=== PATIENT | female | born 1995 | race Caucasian/White ===

== ENCOUNTER 2024-01-06 08:13 | Observation (INO) ==
--- NOTE | 2024-01-06 08:29 | ED.PDOC ---
General ED Provider: Dr. AMAN PEÑA MD Chief Complaint: Diabetes Stated Complaint: Patient history of type 1 diabetes complains of elevated blood sugar Accu-Chek reading high over the past 48 hours associated persistent nausea and emesis x 1 with pain in her shoulders. Denies difficulty breathing difficulty swallowing denies diarrhea. Time Seen by Provider: 01/06/24 08:24 Mode of Arrival: Walk-In Information Source: Patient Exam Limitations: Clinical condition Nursing and Triage Documentation Reviewed and Agree: Yes What is Opioid Naive?: *Opioid Naive implies the patient is not already taking opioids or not chronically receiving opioids on a daily basis. *PRN dosing is not "usually" associated with tolerance. *Patients are at higher risk of over-sedation and aspiration. What is Opioid Tolerant?: *Opioid Tolerance implies less than the expected response to an opioid. *Acquired tolerance is defined by the patient taking 60mg of oral morphine daily (or equianalgesic dose of another opioid) for 1 week or more. *Often associated with chronic pain. *May take more than usual dose to achieve desired pain control. Review of Systems Review Of Systems Constitutional: Reports Weakness Eyes: Reports No symptoms Ears, Nose, Mouth, Throat: Reports No symptoms Respiratory: Reports No symptoms Cardiac: Reports No symptoms GI: Reports Nausea and Poor appetite : Reports No symptoms Musculoskeletal: Reports Joint pain (Pain in both shoulders) Skin: Reports No symptoms Neurological: Reports No symptoms Endocrine: Reports No symptoms Hematologic/Lymphatic: Reports No symptoms All Other Systems: Reviewed and Negative Physical Exam Physical Exam Appearance: Reports Well-appearing Ill-appearing: None Pain Distress: None Eyes: Reports PARUL, EOMI and Conjunctiva clear ENT: Reports Ears normal and Nose normal Neck: Supple Respiratory: Reports Airway patent, Breath sounds clear and Breath sounds equal Cardiovascular: Reports Pulses normal and Tachycardia GI/: Reports Soft, Nontender and Bowel sounds normal Musculoskeletal: Reports Normal strength, ROM intact and No edema Skin: Reports Warm Neurological: Reports Sensation intact Psychiatric: Reports Affect appropriate Re-Evaluation Re-Evaluation Time of Re-Evaluation: 09:40 Pain Level: Patient states her pain has improved Physician Notification Case Discussed Physician Notified: discussed with hospitalist Julieta Yanez Time of Notification: 13:20 Comments: After review of her laboratory data will admit to observation Critical Care Note Critical Care Note Total Critical Care Time (mins): 30 Course Course 01/06/24 08:52 01/06/24 12:15 Orders, Labs, Meds: Lab Review 01/06/24 01/06/24 01/06/24 08:35 08:52 12:15 WBC 11.01 H RBC 4.71 Hgb 14.5 Hct 44.7 MCV 94.9 MCH 30.8 MCHC 32.4 RDW Coeff of Josiane 12.0 Plt Count 275 Immature Gran % (Auto) 0.2 Neut % (Auto) 68.1 Lymph % (Auto) 21.5 Faulk % (Auto) 5.3 Eos % (Auto) 4.5 Baso % (Auto) 0.4 Neut # (Auto) 7.5 H Lymph # (Auto) 2.4 Faulk # (Auto) 0.6 Eos # (Auto) 0.5 Baso # (Auto) 0.0 Immature Gran # (Auto) 0.0 Puncture Site Rbrach Base Excess -18.4 L O2 Saturation 96.0 ABG pH 7.23 L* ABG pCO2 22.0 L ABG pO2 97.0 ABG HCO3 9.2 L ABG Total CO2 9.9 L Hemoglobin 1.1 Oxyhemoglobin 95.6 Carboxyhemoglobin 2.8 H Total Hemoglobin 13.7 FiO2 % 21.0 Sodium 134.4 L 136.5 Potassium 4.04 4.26 Chloride 101.8 110.4 H Carbon Dioxide 11.6 L 12.8 L Anion Gap 25.04 17.56 BUN 20.1 H 18.6 H Creatinine 0.93 0.80 Estimated GFR (MDRD) 71.00 85.00 BUN/Creatinine Ratio 21.61 23.25 Glucose 387.7 H 135.4 H D Calcium 9.51 8.14 L Phosphorus 4.10 Magnesium 2.26 Total Bilirubin 2.97 H AST 31.0 ALT 30.0 Alkaline Phosphatase 111.4 Troponin I < 0.012 Total Protein 8.04 Albumin 4.85 Globulin 3.19 Albumin/Globulin Ratio 1.52 Urine Color Yellow Urine Clarity Clear Urine pH 5.5 Ur Specific [place] 1.025 Urine Protein Negative Urine Glucose (UA) 2+ H Urine Ketones 3+ H Urine Blood Trace-intact H Urine Nitrite Negative Urine Bilirubin Negative Urine Urobilinogen 0.2 Ur Leukocyte Esterase Negative Urine Microscopic RBC 2-5 Ur Squamous Epith Cells Not present Urine Test Negative Acetone, Qual None Orders Category Date Time Status ABG DRAW REQUEST Stat CARDIO 05/18/24 08:29 Completed EKG-(ED ONLY) Stat CARDIO 01/06/24 08:32 Completed ACTIVITY .Up With Assistance CARE 01/06/24 13:19 Active BLOOD GLUCOSE MONITORING (MED/SURG) Q1HR CARE 01/06/24 13:19 Active BLOOD GLUCOSE MONITORING (MED/SURG) Q1HR CARE 01/06/24 13:21 Active INTAKE & OUTPUT Q8HR CARE 01/06/24 13:19 Active VITAL SIGNS Q4HR CARE 01/06/24 13:19 Active NOTHING BY MOUTH DIETARY 01/06/24 Lunch Ordered Radiographer [ED PERSONAL [employer]ANCIAL PLANNER APPLIED] .ONCE EMERGENCY 01/06/24 08:32 Active ABG COOX Stat LAB 01/06/24 08:35 Completed ACETONE, QUALITATIVE Stat LAB 01/06/24 08:52 Completed BMP [BASIC METABOLIC PANEL] Stat LAB 01/06/24 12:15 Completed CBC W/ AUTO DIFF DAILY@0600 LAB 01/07/24 06:00 Ordered CBC W/ AUTO DIFF DAILY@0600 LAB 01/08/24 06:00 Ordered CBC W/ AUTO DIFF Stat LAB 01/06/24 08:52 Completed CMP [COMPREHENSIVE METABOLIC PANEL] Stat LAB 01/06/24 08:52 Completed COMPREHENSIVE METABOLIC PANEL DAILY@0600 LAB 01/07/24 06:00 Ordered COMPREHENSIVE METABOLIC PANEL DAILY@0600 LAB 01/08/24 06:00 Ordered MAGNESIUM Stat LAB 01/06/24 08:52 Completed PHOSPHORUS Stat LAB 01/06/24 08:35 Completed TEST URINE [URINE ] Stat LAB 01/06/24 08:52 Completed TROPONIN I Stat LAB 01/06/24 08:52 Completed URINALYSIS C & S IF INDICATED Stat LAB 01/06/24 08:52 Completed Acetaminophen [Tylenol] Meds 01/06/24 13:19 Active 650 mg PO Q4H PRN Insulin Regular in 0.9 % NaCl [Myxredlin 100 Unit/100 Meds 01/06/24 13:30 Active ml Bag] 100 unit in 100 ml IV TITRATION Insulin Regular, Human [Humulin R] Meds 01/06/24 09:40 Discontinued 4 unit IVP ONCE STA Ketorolac Tromethamine [Toradol] Meds 01/06/24 09:02 Discontinued 30 mg IVP ONCE STA Morphine Sulfate [Morphine 2 mg/ml Syringe] Meds 01/06/24 10:44 Discontinued 2 mg IVP ONCE ONE Ondansetron HCl/Pf [Zofran 4 mg/2 ml] [facility] 01/06/24 08:29 Discontinued 4 mg IVP ONCE STA Ondansetron HCl/Pf [Zofran 4 mg/2 ml] [facility] 01/06/24 12:52 Discontinued 4 mg IVP ONCE STA Ondansetron HCl/Pf [Zofran 4 mg/2 ml] [facility] 01/06/24 13:19 Active 4 mg IVP Q6H PRN Potassium Chloride/D5-0.45NACL [D5%-1/2Ns-KCl 20 Meq/l [facility] 01/06/24 13:30 Active IV Diana] 1,000 ml IV 250 mls/hr Sodium Chloride 0.9% [Sodium Chloride] 1,000 ml [facility] 01/06/24 08:29 Discontinued IV BOLUS Sodium Chloride 0.9% [Sodium Chloride] 1,000 ml [facility] 01/06/24 09:40 Discontinued IV BOLUS Sodium Chloride 0.9% [Sodium Chloride] 1,000 ml [facility] 01/06/24 12:45 Active IV BOLUS Medications Generic Name Dose Route Start Last Admin Trade Name Freq PRN Reason Stop Dose Admin Acetaminophen 650 mg 01/06/24 13:19 Acetaminophen 325 Mg Tablet PO Q4H PRN Mild Pain Sodium Chloride 1,000 mls @ 1,000 mls/hr 01/06/24 12:45 01/06/24 12:53 Sodium Chloride IV 01/06/24 13:44 1,000 mls/hr BOLUS ONE Administration Potassium Chloride/Dextrose/Sod Cl 1,000 mls @ 250 mls/hr 01/06/24 13:30 D5%-1/2ns-Kcl 20 Meq/L Iv Diana IV .Q4H CHARLY INSULIN REGULAR IN 0.9 % NACL 100 unit in 100 mls @ 7.466 mls/hr 01/06/24 13:30 Myxredlin 100 Unit/100 Ml Bag IV TITRATION CHARLY Protocol 0.1 UNIT/KG/HR Ondansetron HCl 4 mg 01/06/24 13:19 Ondansetron Hcl/Pf 4 Mg/2 Ml Sdv IVP Q6H PRN Nausea / Vomiting Discontinued Medications Generic Name Dose Route Start Last Admin Trade Name Freq PRN Reason Stop Dose Admin Sodium Chloride 1,000 mls @ 1,000 mls/hr 01/06/24 08:29 01/06/24 10:42 Sodium Chloride IV 01/06/24 09:28 Infused BOLUS ONE Infusion Sodium Chloride 1,000 mls @ 1,000 mls/hr 01/06/24 09:40 01/06/24 11:32 Sodium Chloride IV 01/06/24 10:39 Infused BOLUS ONE Infusion Insulin Human Regular 4 unit 01/06/24 09:40 01/06/24 10:20 Insulin Regular, Human 100 Unit/Ml (10ml) Vial IVP 01/06/24 09:41 4 unit ONCE STA Administration Ketorolac Tromethamine 30 mg 01/06/24 09:02 01/06/24 09:06 Ketorolac Tromethamine 30 Mg/Ml Vial IVP 01/06/24 09:03 30 mg ONCE STA Administration Morphine Sulfate 2 mg 01/06/24 10:44 01/06/24 10:49 Morphine Sulfate 2 Mg/Ml Syringe IVP 01/06/24 10:45 2 mg ONCE ONE Administration Ondansetron HCl 4 mg 01/06/24 08:29 01/06/24 08:43 Ondansetron Hcl/Pf 4 Mg/2 Ml Sdv IVP 01/06/24 08:30 4 mg ONCE STA Administration Ondansetron HCl 4 mg 01/06/24 12:52 01/06/24 13:03 Ondansetron Hcl/Pf 4 Mg/2 Ml Sdv IVP 01/06/24 12:53 4 mg ONCE STA Administration Vital Signs: Temp Pulse Resp BP Pulse Ox 01/06/24 08:13 98.3 F 104 H 24 H 126/80 100 Discharge Plan Discharge Patient Disposition: PLACED OBSERVATION Discharge Problem: Diabetic keto-acidosis Qualifiers: Diabetes mellitus type: type 1 Diabetes mellitus complication detail: without coma Qualified Code(s): E10.10 - Type 1 diabetes mellitus with ketoacidosis without coma Prescriptions: No Action insulin lispro [Humalog U-100 Insulin] 100 unit/mL solution 1 sliding scale dose subcut DIRECTED Did you review [place] [employer] for ALL controlled substances?: Not Applicable ED Provider: AMAN PEÑA Condition: Stable Physician Progress Note: Patient with a history of type 1 diabetes complains of elevated glucose over the past 48 hours as infusion pump complains of persistent nausea associated episode emesis and pain in both shoulders denies abdominal pain lethargy fever chills urinary symptoms diarrhea. Patient given a bolus normal saline 1 L/h x 2 Zofran 4 mg IV Toradol 30 mg IV EKG interpretation by myself is specific normal sinus with a rate of 93 there is no ischemic changes there is no ectopy there is no prolongation of ME QT interval. Laboratory data acetone is negative CBC for normal limit except for white blood count of 1000 the BMP is normal limits of for glucose of 387 and a CO2 of 11.6. Acetone is negative, serum blood gas with normal limits therefore pH 7.23 and bicarb 9.2. Patient administered Humulin regular insulin 4 units IV, followed by a 3rd liter normal saline Repeat BMP pCO2 remains calm and glucose 135 Advised the patient to disconnect her insulin pump percutaneous Differential diagnosis: 1)Diabetic ketoacidosis: discussed with hospitalist Julieta Yanez at 1324 for observation []
[2024-01-06] MEDS: SODIUM CHLORIDE 1,000 ML IV ONE ×3 (08:43→12:53)
[2024-01-06] MEDS: ZOFRAN 4 MG/2 ML IVP STA ×2 (08:43→13:03)
[2024-01-06 08:57] LABS: BASOPHILS % (AUTO) 0.4 % (0.0-3.0); EOSINOPHILS # (AUTO) 0.5 K/ul (0.0-0.7); EOSINOPHILS % (AUTO) 4.5 % (0.0-7.0); HEMATOCRIT 44.7 % (37.0-47.0); HEMOGLOBIN 14.5 g/dl (12.0-16.0); IMMATURE GRANULOCYTE % (AUTO) 0.2 % (0.0-5.0); LYMPHOCYTES # (AUTO) 2.4 K/uL (0.60-3.4); LYMPHOCYTES % (AUTO) 21.5 (10.0-50.0); MEAN CORPUSCULAR HEMOGLOBIN 30.8 pg (27.0-31.0); MEAN CORPUSCULAR HGB CONC 32.4 (31.8-35.4); MEAN CORPUSCULAR VOLUME 94.9 fl (81.0-99.0); MONOCYTES # (AUTO) 0.6 K/uL (0.4-2.0); MONOCYTES % (AUTO) 5.3 (0-10); NEUTROPHILS # (AUTO) 7.5 K/ul (2.0-6.9); NEUTROPHILS % (AUTO) 68.1 % (42.2-75.2); PLATELET COUNT 275 10^3/uL (140-440); RED BLOOD COUNT 4.71 10^6/ul (4.20-5.40); WHITE BLOOD COUNT 11.01 K/ul (4.6-10.2)
[2024-01-06 08:59] LABS: BILIRUBIN,URINE Negative (NEGATIVE); CLARITY,URINE Clear (CLEAR); COLOR,URINE Yellow (YELLOW); GLUCOSE, URINE (UA) 2+ (NEGATIVE); KETONES,URINE 3+ (NEGATIVE); LEUKOCYTE ESTERASE ,URINE Negative (NEGATIVE); NITRITE,URINE Negative (NEGATIVE); PH,URINE 5.5 (5-9); PROTEIN,URINE Negative (NEGATIVE); SQUAMOUS EPITHELIAL CELL,UR NOT PRESENT (0-5); URINE PREGNANCY TEST NEGATIVE (NEGATIVE); URINE, BLOOD Trace-intact (NEGATIVE); UROBILINOGEN,URINE 0.2 (0.2)
[2024-01-06 09:01] LABS: ABG O2 HGB 95.6 % (95-100); BEecf -18.4 (-2.0-3.0); COHb 2.8 (0.5-1.5); HCO3 9.2 (21-28); MetHb 1.1 (0-1.5); TCO2 9.9 (19-24); tHb 13.7 g/dl (11.7-17.4)
[2024-01-06 09:03] LABS: ABG PH 7.23 (7.35-7.45)
[2024-01-06] MEDS: TORADOL IVP STA (09:06)
[2024-01-06 09:10] LABS: ALBUMIN 4.85 g/dL (3.5-5.0); ALKALINE PHOSPHATASE 111.4 U/L (38-126); BILIRUBIN,TOTAL 2.97 mg/dL (0.2-1.3); BLOOD UREA NITROGEN 20.1 mg/dL (7-17); CALCIUM 9.51 mg/dL (8.4-10.2); CARBON DIOXIDE 11.6 mmol/L (22-30.0); CHLORIDE 101.8 mmol/L (98-107); CREATININE 0.93 mg/dL (0.60-1.30); GLUCOSE 387.7 mg/dL (74-106); MAGNESIUM 2.26 mg/dL (1.6-2.3); POTASSIUM 4.04 mmol/L (3.5-5.1); SODIUM 134.4 mmol/L (134.5-145); TOTAL PROTEIN 8.04 g/dL (6.3-8.2)
[2024-01-06] MEDS: HUMULIN R (10ML) IVP STA (10:20)
[2024-01-06] MEDS: MORPHINE 2 MG/ML SYRINGE IVP ONE (10:49)
[2024-01-06 12:32] LABS: BLOOD UREA NITROGEN 18.6 mg/dL (7-17); CALCIUM 8.14 mg/dL (8.4-10.2); CARBON DIOXIDE 12.8 mmol/L (22-30.0); CHLORIDE 110.4 mmol/L (98-107); CREATININE 0.8 mg/dL (0.60-1.30); GLUCOSE 135.4 mg/dL (74-106); POTASSIUM 4.26 mmol/L (3.5-5.1); SODIUM 136.5 mmol/L (134.5-145)
[2024-01-06] MEDS ORDERED: ZOFRAN 4 MG/2 ML IVP PRN (13:19)
[2024-01-06] MEDS ORDERED: TYLENOL PO PRN (13:19)
--- NOTE | 2024-01-06 13:27 | PCM ---
Date of Service Date Seen by Provider: 01/06/24 Time Seen by Provider: 14:00 Admit Day/Time Admission Date: 01/06/24 Admission Time: 13:38 Reason for Admission Chief Complaint: DIABETIC KETOACIDOSIS Hospital Provider Hospital Provider: Julieta Yanez PA-C, [facility] History of Present Illness History of Present Illness: Patient is a 28 year old female with pmhx of hypothyroidism, DMT1 on insulin pump who comes in for elevated blood sugars and vomiting. She has concerns of being in DKA. [place]. States her pump was ripped off of her by her child yesterday. She was able to replace it but then this morning her glucose readings were high and she started having nausea, body aches, and sob. In the ER she was found to have ph 7.23, bicarb of 11, glucose >350, anion gap of 25 and 3+ ketones in urine. She was given 2.5L of fluid and 4U IVP of insulin and bicarb improved only to 12. She will be admitted to med surg. Patient states she hasn't been in DKA in about 13 years. Usually does well with her insulin pump. She's feeling better now but complains of dry mouth. Case Discussed With Case Discussed With: Patient's case was discussed with the ER Physicians, Dr. Saucedo. [facility] Medical History (Updated 01/06/24 @ 14:50 by URBANO SORIANO, CONY) delivery delivered X2 O82 - Encounter for delivery without indication (ICD-10) Vitamin D deficiency E55.9 - Vitamin D deficiency, unspecified (ICD-10) Hypothyroidism E03.9 - Hypothyroidism, unspecified (ICD-10) Surgical History (Updated 01/06/24 @ 14:50 by URBANO SORIANO, RN) History of hip surgery left plates and screws Z98.890 - Other specified postprocedural states (ICD-10) Social History (Updated 01/06/24 @ 14:50 by URBANO SORIANO, RN) Smoking and tobacco status: Never smoker Alcohol intake: never Substance use type: does not use Allergies Allergies Allergy/AdvReac Type Severity Reaction Status Date / Time No Known Allergies Allergy Unverified 01/06/24 08:27 Current Medications Home Medications insulin lispro 100 unit/mL subcutaneous solution (Humalog U-100 Insulin) 1 sliding scale dose subcut DIRECTED 01/06/24 [History Confirmed 01/06/24 Last Taken Unknown] Home Acetaminophen (Acetaminophen 325 Mg Tablet) 650 mg PO Q4H PRN PRN Reason: Mild Pain Potassium Chloride/Dextrose/Sod Cl (D5%-1/2ns-Kcl 20 Meq/L Iv Diana) 1,000 mls @ 250 mls/hr IV .Q4H CHARLY INSULIN REGULAR IN 0.9 % NACL (Myxredlin 100 Unit/100 Ml Bag) 100 unit in 100 mls @ 7.466 mls/hr IV TITRATION CHARLY; Protocol Dextrose/Sodium Chloride (Dextrose 5%-1/2ns Iv Solution) 1,000 mls @ 250 mls/hr IV .Q4H CHARLY Last Admin: 01/06/24 15:01 Dose: 250 mls/hr Morphine Sulfate (Morphine Sulfate 2 Mg/Ml Syringe) 1 mg IVP Q6H PRN PRN Reason: MODERATE PAIN Ondansetron HCl (Ondansetron Hcl/Pf 4 Mg/2 Ml Sdv) 4 mg IVP Q6H PRN PRN Reason: Nausea / Vomiting Discontinued Medications Sodium Chloride (Sodium Chloride) 1,000 mls @ 1,000 mls/hr IV BOLUS ONE Stop: 01/06/24 09:28 Last Infusion: 01/06/24 10:42 Dose: Infused Sodium Chloride (Sodium Chloride) 1,000 mls @ 1,000 mls/hr IV BOLUS ONE Stop: 01/06/24 10:39 Last Infusion: 01/06/24 11:32 Dose: Infused Sodium Chloride (Sodium Chloride) 1,000 mls @ 1,000 mls/hr IV BOLUS ONE Stop: 01/06/24 13:44 Last Infusion: 01/06/24 14:45 Dose: Infused Insulin Human Regular (Insulin Regular, Human 100 Unit/Ml (10ml) Vial) 4 unit IVP ONCE STA Stop: 01/06/24 09:41 Last Admin: 01/06/24 10:20 Dose: 4 unit Ketorolac Tromethamine (Ketorolac Tromethamine 30 Mg/Ml Vial) 30 mg IVP ONCE STA Stop: 01/06/24 09:03 Last Admin: 01/06/24 09:06 Dose: 30 mg Morphine Sulfate (Morphine Sulfate 2 Mg/Ml Syringe) 2 mg IVP ONCE ONE Stop: 01/06/24 10:45 Last Admin: 01/06/24 10:49 Dose: 2 mg Ondansetron HCl (Ondansetron Hcl/Pf 4 Mg/2 Ml Sdv) 4 mg IVP ONCE STA Stop: 01/06/24 08:30 Last Admin: 01/06/24 08:43 Dose: 4 mg Ondansetron HCl (Ondansetron Hcl/Pf 4 Mg/2 Ml Sdv) 4 mg IVP ONCE STA Stop: 01/06/24 12:53 Last Admin: 01/06/24 13:03 Dose: 4 mg Opioid Naive vs. Tolerant Does Patient Take Opioids?: No Is Patient Opioid Naive?: Yes What is Opioid Naive?: *Opioid Naive implies the patient is not already taking opioids or not chronically receiving opioids on a daily basis. *PRN dosing is not "usually" associated with tolerance. *Patients are at higher risk of over-sedation and aspiration. Is Patient Opioid Tolerant?: No What is Opioid Tolerant?: *Opioid Tolerance implies less than the expected response to an opioid. *Acquired tolerance is defined by the patient taking 60mg of oral morphine daily (or equianalgesic dose of another opioid) for 1 week or more. *Often associated with chronic pain. *May take more than usual dose to achieve desired pain control. Review of Systems Constitutional: Reports Fatigue and Loss of appetite Head: Reports Normocephalic and Atraumatic Cardiovascular: Denies Chest pain or Chest Pressure Respiratory: Reports Shortness of air; Denies Cough Gastrointestinal: Reports Nausea and Vomiting; Denies Diarrhea or Abdominal pain Genitourinary: Denies Dysuria or Frequency Endocrine: Reports Excessive thirst Psychiatric: Reports No symptoms Physical examination Most Recent Vital Signs: Most Recent Vital Signs Temperature 98.3 F 01/06/24 08:13 Temperature Source Infrared 01/06/24 08:13 Pulse Rate 104 H 01/06/24 08:13 Respiratory Rate 24 H 01/06/24 08:13 Blood Pressure 126/80 01/06/24 08:13 O2 Sat by Pulse Oximetry 100 01/06/24 08:13 Height 5 ft 4.25 in 01/06/24 08:13 Weight 164 lb 9.6 oz 01/06/24 08:13 Appearance: Positive Well-appearing, Well-nourished, No Apparent Distress and Alert and Oriented x3 Skin: Positive [place], Warm and Good Turgor; Negative Rashes HEENT: Positive Normocephalic and Atraumatic; Negative Oral Mucous Moist Neck: Positive Supple and Midline Trachea Chest/Lungs: Positive Clear to Auscultation Bilaterally; Negative Rales, Rhonci or Wheezes Heart: Positive RRR GI/: Positive Soft, Nontender, Bowel Sounds Normal and No Distention Neurological: Positive Cranial Nerves Intact, Alert, Oriented and Muscle Strength 5/5 in Upper and Lower Extremities Bilaterally Psychiatric: Positive Oriented x4, Appropriate Mood and Appropriate Affect Labs This Visit Labs This Visit: Labs This Visit 01/06/24 01/06/24 01/06/24 08:35 08:52 12:15 WBC 11.01 H RBC 4.71 Hgb 14.5 Hct 44.7 MCV 94.9 MCH 30.8 MCHC 32.4 RDW Coeff of Josiane 12.0 Plt Count 275 Immature Gran % (Auto) 0.2 Neut % (Auto) 68.1 Lymph % (Auto) 21.5 [place] % (Auto) 5.3 Eos % (Auto) 4.5 Baso % (Auto) 0.4 Neut # (Auto) 7.5 H Lymph # (Auto) 2.4 [place] # (Auto) 0.6 Eos # (Auto) 0.5 Baso # (Auto) 0.0 Immature Gran # (Auto) 0.0 Puncture Site Rbrach Base Excess -18.4 L O2 Saturation 96.0 ABG pH 7.23 L* ABG pCO2 22.0 L ABG pO2 97.0 ABG HCO3 9.2 L ABG Total CO2 9.9 L Hemoglobin 1.1 Oxyhemoglobin 95.6 Carboxyhemoglobin 2.8 H Total Hemoglobin 13.7 FiO2 % 21.0 Sodium 134.4 L 136.5 Potassium 4.04 4.26 Chloride 101.8 110.4 H Carbon Dioxide 11.6 L 12.8 L Anion Gap 25.04 17.56 BUN 20.1 H 18.6 H Creatinine 0.93 0.80 Estimated GFR (MDRD) 71.00 85.00 BUN/Creatinine Ratio 21.61 23.25 Glucose 387.7 H 135.4 H D Calcium 9.51 8.14 L Phosphorus 4.10 Magnesium 2.26 Total Bilirubin 2.97 H AST 31.0 ALT 30.0 Alkaline Phosphatase 111.4 Troponin I < 0.012 Total Protein 8.04 Albumin 4.85 Globulin 3.19 Albumin/Globulin Ratio 1.52 Urine Color Yellow Urine Clarity Clear Urine pH 5.5 Ur Specific [place] 1.025 Urine Protein Negative Urine Glucose (UA) 2+ H Urine Ketones 3+ H Urine Blood Trace-intact H Urine Nitrite Negative Urine Bilirubin Negative Urine Urobilinogen 0.2 Ur Leukocyte Esterase Negative Urine Microscopic RBC 2-5 Ur Squamous Epith Cells Not present Urine Test Negative Acetone, Qual None Review Statement Review Statement: I have independently reviewed and interpreted the labs/EKGs/imaging that were ordered by the ER provider. I have reviewed all outside records that are available currently in our EMR including imaging/notes/labs from previous visits. Plan Plan: 1. DKA, moderate - AG initially 25, improved to 17. Glucose <200 right now in ER. Start D51/2+20K at 250 ml/hr, insulin drip, accuchecks q1hr, repeat bmp and venous ph in 4 hours. Stop patient's personal insulin pump for now. UA negative for infection. Likely due to insulin pump malfunction/change yesterday. 2. Hypothyoridism - Cont home meds Update: Patient's glucose 79 upon arrival to the floor. Will hold on insulin drip. Start d51/2NS at 250ml/hr. Once glucose about 200, will change fluids and add insulin drip. Will also get a bmp at that time. DVT Prophylaxis: Ambulation Time Spent: Greater than 80 minutes spent with patient, 50% of the time spent with this patient was devoted to counseling and coordination of care. Advanced [facility] Plannin minutes spent discussing advance care planning. Admit to: Obs Dispo: Likely dc tomorrow Discussed Plan of Care with Dr. Edilson Fernandes. Medications Medication Orders: Medications Ordered Category Date Time Status Acetaminophen [Tylenol] Meds 01/06/24 13:19 Ordered 650 mg PO Q4H PRN Insulin Regular in 0.9 % NaCl [Myxredlin 100 Unit/100 Meds 01/06/24 13:30 Ordered ml Bag] 100 unit in 100 ml IV TITRATION Ondansetron HCl/Pf [Zofran 4 mg/2 ml] Meds 01/06/24 13:19 Ordered 4 mg IVP Q6H PRN Potassium Chloride/D5-0.45NACL [D5%-1/2Ns-KCl 20 Meq/l Meds 01/06/24 13:30 Ordered IV Diana] 1,000 ml IV 250 mls/hr Sodium Chloride 0.9% [Sodium Chloride] 1,000 ml Meds 01/06/24 12:45 Active IV BOLUS
[2024-01-06 14:15] LABS: SARS COV-2 RNA RAPID NAAT NEGATIVE (NEGATIVE)
[2024-01-06 14:59] VITALS: BMI 28.7
[2024-01-06] MEDS: DEXTROSE 5%-1/2NS IV SOLUTION 1,000 ML IV SCH (15:01)
[2024-01-06] MEDS: MORPHINE 2 MG/ML SYRINGE IVP PRN (16:31)
[2024-01-06 16:40] LABS: BLOOD UREA NITROGEN 14.5 mg/dL (7-17); CALCIUM 8.04 mg/dL (8.4-10.2); CARBON DIOXIDE 13.7 mmol/L (22-30.0); CHLORIDE 109.2 mmol/L (98-107); CREATININE 0.62 mg/dL (0.60-1.30); GLUCOSE 127.8 mg/dL (74-106); POTASSIUM 3.82 mmol/L (3.5-5.1); SODIUM 136.3 mmol/L (134.5-145)
[2024-01-06] MEDS: MYXREDLIN 100 UNIT/100 ML BAG 100 UNIT/100 ML PLAST..BAG IV SCH (17:27)
[2024-01-06] MEDS: D5%-1/2NS-KCL 20 MEQ/L IV SOL 1,000 ML IV SCH (17:29)
[2024-01-06] MEDS: PHENERGAN 25 MG/ML VIAL IM ONE (20:25)
[2024-01-06 21:52] LABS: CALCIUM 7.86 mg/dL (8.4-10.2); CARBON DIOXIDE 16.7 mmol/L (22-30.0); CREATININE 0.64 mg/dL (0.60-1.30); GLUCOSE 85.5 mg/dL (74-106); POTASSIUM 3.26 mmol/L (3.5-5.1); SODIUM 136.9 mmol/L (134.5-145)
[2024-01-06 22:10] LABS: VBG HCO3 19.3 (22-26); VBG OXYGEN SATURATION 71.5 (60-80); VBG PH 7.28 (7.30-7.40)
[2024-01-06] MEDS: POTASSIUM CHLORIDE 20 MEQ/100 ML PREMIX 20 MEQ/100 ML BAG IV ONE (22:13)
[2024-01-07 01:17] LABS: BLOOD UREA NITROGEN 8.3 mg/dL (7-17); CALCIUM 7.64 mg/dL (8.4-10.2); CARBON DIOXIDE 10.7 mmol/L (22-30.0); CHLORIDE 111.6 mmol/L (98-107); CREATININE 0.56 mg/dL (0.60-1.30); GLUCOSE 252.2 mg/dL (74-106); POTASSIUM 4.72 mmol/L (3.5-5.1)
[2024-01-07 05:37] LABS: BASOPHILS % (AUTO) 0.3 % (0.0-3.0); EOSINOPHILS # (AUTO) 0.3 K/ul (0.0-0.7); EOSINOPHILS % (AUTO) 5.1 % (0.0-7.0); HEMOGLOBIN 11.3 g/dl (12.0-16.0); IMMATURE GRANULOCYTE % (AUTO) 0.3 % (0.0-5.0); LYMPHOCYTES # (AUTO) 2.3 K/uL (0.60-3.4); LYMPHOCYTES % (AUTO) 34.7 (10.0-50.0); MEAN CORPUSCULAR HEMOGLOBIN 31.5 pg (27.0-31.0); MEAN CORPUSCULAR HGB CONC 33.2 (31.8-35.4); MEAN CORPUSCULAR VOLUME 94.7 fl (81.0-99.0); MONOCYTES # (AUTO) 0.5 K/uL (0.4-2.0); NEUTROPHILS # (AUTO) 3.5 K/ul (2.0-6.9); NEUTROPHILS % (AUTO) 52.6 % (42.2-75.2); PLATELET COUNT 194 10^3/uL (140-440); RDW COEFFICIENT OF VARIATION 12.3 % (11.6-14.8); RED BLOOD COUNT 3.59 10^6/ul (4.20-5.40); WHITE BLOOD COUNT 6.71 K/ul (4.6-10.2)
[2024-01-07 05:50] LABS: ALANINE AMINOTRANSFERASE 13.4 U/L (0-35); ALBUMIN 3.13 g/dL (3.5-5.0); ALKALINE PHOSPHATASE 46.6 U/L (38-126); ASPARTATE AMINO TRANSFERASE 37.4 U/L (14-36); BILIRUBIN,TOTAL 1.99 mg/dL (0.2-1.3); CALCIUM 7.92 mg/dL (8.4-10.2); CARBON DIOXIDE 18.2 mmol/L (22-30.0); CHLORIDE 113.6 mmol/L (98-107); CREATININE 0.66 mg/dL (0.60-1.30); GLUCOSE 144.4 mg/dL (74-106); POTASSIUM 3.71 mmol/L (3.5-5.1); SODIUM 136.8 mmol/L (134.5-145); TOTAL PROTEIN 5.62 g/dL (6.3-8.2)
[2024-01-07 05:54] LABS: VBG HCO3 18.7 (22-26); VBG OXYGEN SATURATION 76.4 (60-80); VBG PH 7.3 (7.30-7.40)
--- NOTE | 2024-01-07 09:53 | PCM.PROG ---
Date/Time Seen Date Seen by Provider: 01/07/24 Time Seen by Provider: 08:30 Provider Provider[facility]IM[facility]ARE [facility] Chief Complaint Chief Complaint: DIABETIC KETOACIDOSIS Subjective Subjective: Patient's DKA resolved as of this morning, around [id number] patient was transitioned off of insulin drip to her pump, she ate some breakfast. She overall doesn't feel well, feels achy and has a headache. She also had some low blood pressure readings this morning. She is requesting ibuprofen. Discussed monitoring patient's glucose and BP this morning with plans to discharge later in the day. However, patient's family with her needs to return to [place] this morning. She prefers to stay overnight again to ensure everything is stable and her dad can come and get her from [place]. Objective Appearance: Positive Well-appearing, Well-nourished, No Apparent Distress and Alert and Oriented x3 Chest/Lungs: Positive Clear to Auscultation Bilaterally; Negative Rales, Rhonci or Wheezes Heart: Positive RRR GI/: Positive Soft, Nontender, Bowel Sounds Normal and No Distention Neurological: Positive Cranial Nerves Intact, Alert and Oriented Vital Signs Vital Signs: Vital Signs: Last 24 Hours 01/06/24 14:43 01/06/24 14:43 01/06/24 15:00 Temperature 98.9 F Temperature Source Oral Pulse Rate 74 Respiratory Rate 16 Blood Pressure Blood Pressure Mean Blood Pressure Left Arm 120/58 Blood Pressure Location Blood Pressure Position Supine O2 Sat by Pulse Oximetry 100 Oxygen Delivery Method Room Air Room Air Room Air Height 5 ft 4 in Weight 167 lb 4.8 oz Telemetry Type Telemetry Monitoring Telemetry Heart Rate EKG MO Interval EKG QRS Interval Telemetry Strip Reading 01/06/24 16:00 01/06/24 17:00 01/06/24 17:52 Temperature Temperature Source Pulse Rate Respiratory Rate Blood Pressure Blood Pressure Mean Blood Pressure Left Arm Blood Pressure Location Blood Pressure Position O2 Sat by Pulse Oximetry Oxygen Delivery Method Room Air Room Air Room Air Height Weight Telemetry Type Telemetry Monitoring Telemetry Heart Rate EKG MO Interval EKG QRS Interval Telemetry Strip Reading 01/06/24 18:00 01/06/24 18:58 01/06/24 19:00 Temperature Temperature Source Pulse Rate 84 Respiratory Rate 19 Blood Pressure 112/52 L Blood Pressure Mean 72 Blood Pressure Left Arm Blood Pressure Location Left Arm Blood Pressure Position Supine O2 Sat by Pulse Oximetry 100 Oxygen Delivery Method Room Air Room Air Height Weight Telemetry Type Remote Telemetry Telemetry Monitoring Continues Telemetry Heart Rate 78 EKG MO Interval 0.16 EKG QRS Interval 0.06 Telemetry Strip Reading SR 01/06/24 19:38 01/06/24 19:39 01/06/24 20:05 Temperature Temperature Source Pulse Rate 92 Respiratory Rate 19 Blood Pressure 98/53 L Blood Pressure Mean Blood Pressure Left Arm Blood Pressure Location Blood Pressure Position O2 Sat by Pulse Oximetry Oxygen Delivery Method Room Air Room Air Height Weight Telemetry Type Telemetry Monitoring Telemetry Heart Rate EKG MO Interval EKG QRS Interval Telemetry Strip Reading 01/06/24 20:38 01/06/24 21:00 01/06/24 21:24 Temperature 97.7 F Temperature Source Temporal Artery Scan Pulse Rate 83 78 Respiratory Rate 19 23 H Blood Pressure 111/53 L Blood Pressure Mean 72 Blood Pressure Left Arm Blood Pressure Location Left Arm Blood Pressure Position Sitting O2 Sat by Pulse Oximetry 98 Oxygen Delivery Method Room Air Room Air Height Weight Telemetry Type Telemetry Monitoring Telemetry Heart Rate EKG MO Interval EKG QRS Interval Telemetry Strip Reading 01/06/24 22:00 01/06/24 23:00 01/07/24 00:00 Temperature Temperature Source Pulse Rate Respiratory Rate Blood Pressure Blood Pressure Mean Blood Pressure Left Arm Blood Pressure Location Blood Pressure Position O2 Sat by Pulse Oximetry Oxygen Delivery Method Room Air Room Air Room Air Height Weight Telemetry Type Telemetry Monitoring Telemetry Heart Rate EKG MO Interval EKG QRS Interval Telemetry Strip Reading 01/07/24 01:00 01/07/24 01:00 01/07/24 01:31 Temperature Temperature Source Pulse Rate 75 Respiratory Rate 18 Blood Pressure 110/59 L Blood Pressure Mean Blood Pressure Left Arm Blood Pressure Location Blood Pressure Position O2 Sat by Pulse Oximetry Oxygen Delivery Method Room Air Height Weight Telemetry Type Remote Telemetry Telemetry Monitoring Continues Telemetry Heart Rate 82 EKG MO Interval 0.17 EKG QRS Interval 0.06 Telemetry Strip Reading SR 01/07/24 02:00 01/07/24 02:00 01/07/24 03:03 Temperature Temperature Source Pulse Rate 64 Respiratory Rate 16 Blood Pressure 96/49 L Blood Pressure Mean 64 Blood Pressure Left Arm Blood Pressure Location Right Arm Blood Pressure Position Supine O2 Sat by Pulse Oximetry Oxygen Delivery Method Room Air Room Air Room Air Height Weight Telemetry Type Telemetry Monitoring Telemetry Heart Rate EKG MO Interval EKG QRS Interval Telemetry Strip Reading 01/07/24 03:10 01/07/24 04:00 01/07/24 05:00 Temperature Temperature Source Pulse Rate 70 Respiratory Rate 16 Blood Pressure 95/55 L Blood Pressure Mean Blood Pressure Left Arm Blood Pressure Location Blood Pressure Position O2 Sat by Pulse Oximetry Oxygen Delivery Method Room Air Room Air Height Weight Telemetry Type Telemetry Monitoring Telemetry Heart Rate EKG MO Interval EKG QRS Interval Telemetry Strip Reading 01/07/24 05:12 01/07/24 05:20 01/07/24 05:24 Temperature 97.8 F Temperature Source Temporal Artery Scan Pulse Rate 56 L 52 L Respiratory Rate 15 16 Blood Pressure 94/48 L 89/52 L Blood Pressure Mean 64 Blood Pressure Left Arm Blood Pressure Location Right Arm Blood Pressure Position Supine O2 Sat by Pulse Oximetry 97 Oxygen Delivery Method Room Air Room Air Height Weight Telemetry Type Telemetry Monitoring Telemetry Heart Rate EKG MO Interval EKG QRS Interval Telemetry Strip Reading 01/07/24 05:44 01/07/24 05:59 01/07/24 07:00 Temperature Temperature Source Pulse Rate 82 58 L Respiratory Rate 22 H 14 Blood Pressure 95/54 L 80/37 L Blood Pressure Mean 67 Blood Pressure Left Arm Blood Pressure Location Right Arm Blood Pressure Position Supine O2 Sat by Pulse Oximetry Oxygen Delivery Method Room Air Room Air Height Weight Telemetry Type Telemetry Monitoring Telemetry Heart Rate EKG MO Interval EKG QRS Interval Telemetry Strip Reading 01/07/24 08:00 01/07/24 08:00 01/07/24 09:00 Temperature Temperature Source Pulse Rate Respiratory Rate Blood Pressure Blood Pressure Mean Blood Pressure Left Arm Blood Pressure Location Blood Pressure Position O2 Sat by Pulse Oximetry Oxygen Delivery Method Room Air Room Air Room Air Height Weight Telemetry Type Telemetry Monitoring Telemetry Heart Rate EKG MO Interval EKG QRS Interval Telemetry Strip Reading Lab Results Lab Results: Lab Results: Last 24 Hours 01/07/24 01/07/24 01/06/24 05:30 01:00 21:30 WBC 6.71 RBC 3.59 L Hgb 11.3 L D Hct 34.0 L D MCV 94.7 MCH 31.5 H MCHC 33.2 RDW Coeff of Josiane 12.3 Plt Count 194 Immature Gran % (Auto) 0.3 Neut % (Auto) 52.6 Lymph % (Auto) 34.7 Stanton % (Auto) 7.0 Eos % (Auto) 5.1 Baso % (Auto) 0.3 Neut # (Auto) 3.5 Lymph # (Auto) 2.3 Stanton # (Auto) 0.5 Eos # (Auto) 0.3 Baso # (Auto) 0.0 Immature Gran # (Auto) 0.0 VBG pH 7.30 7.28 L VBG pCO2 38 L 41 VBG pO2 46 H 43 H VBG HCO3 18.7 L 19.3 L VBG O2 Saturation 76.4 71.5 Sodium 136.8 134.0 L 136.9 Potassium 3.71 4.72 3.26 L Chloride 113.6 H 111.6 H 113.0 H Carbon Dioxide 18.2 L D 10.7 L 16.7 L Anion Gap 8.71 16.42 10.46 BUN 8.0 8.3 10.0 Creatinine 0.66 0.56 L 0.64 Estimated GFR (MDRD) 106.00 128.00 110.00 BUN/Creatinine Ratio 12.12 14.82 15.62 Glucose 144.4 H D 252.2 H D 85.5 Hemoglobin A1c 7.20 H Calcium 7.92 L 7.64 L 7.86 L Total Bilirubin 1.99 H AST 37.4 H ALT 13.4 Alkaline Phosphatase 46.6 D Total Protein 5.62 L Albumin 3.13 L Globulin 2.49 Albumin/Globulin Ratio 1.25 SARS CoV-2 RNA Rapid JOSÉ LUIS 01/06/24 01/06/24 01/06/24 16:00 13:40 12:15 WBC RBC Hgb Hct MCV MCH MCHC RDW Coeff of Josiane Plt Count Immature Gran % (Auto) Neut % (Auto) Lymph % (Auto) Stanton % (Auto) Eos % (Auto) Baso % (Auto) Neut # (Auto) Lymph # (Auto) Stanton # (Auto) Eos # (Auto) Baso # (Auto) Immature Gran # (Auto) VBG pH VBG pCO2 VBG pO2 VBG HCO3 VBG O2 Saturation Sodium 136.3 136.5 Potassium 3.82 4.26 Chloride 109.2 H 110.4 H Carbon Dioxide 13.7 L 12.8 L Anion Gap 17.22 17.56 BUN 14.5 18.6 H Creatinine 0.62 0.80 Estimated GFR (MDRD) 114.00 85.00 BUN/Creatinine Ratio 23.38 23.25 Glucose 127.8 H 135.4 H D Hemoglobin A1c Calcium 8.04 L 8.14 L Total Bilirubin AST ALT Alkaline Phosphatase Total Protein Albumin Globulin Albumin/Globulin Ratio SARS CoV-2 RNA Rapid JOSÉ LUIS Negative Additional Comments Additional Comments: I have independently reviewed and interpreted the labs/EKGs/imaging ordered during this hospital stay. I have reviewed outside records that are available in our EMR that pertain to medical stay including imaging/notes/labs from previous visits. Active Medications Active Medications: Medications Generic Name Dose Route Start Last Admin Trade Name Freq PRN Reason Stop Dose Admin Acetaminophen 650 mg 01/06/24 13:19 Acetaminophen 325 Mg Tablet PO Q4H PRN Mild Pain Potassium Chloride/Dextrose/Sod Cl 1,000 mls @ 250 mls/hr 01/06/24 13:30 01/07/24 06:08 D5%-1/2ns-Kcl 20 Meq/L Iv Diana IV 250 mls/hr .Q4H CHARLY Administration INSULIN REGULAR IN 0.9 % NACL 100 unit in 100 mls @ 7.466 mls/hr 01/06/24 13:30 01/07/24 06:09 Myxredlin 100 Unit/100 Ml Bag IV 4 mls/hr TITRATION CHARLY Administration Protocol 0.1 UNIT/KG/HR Ibuprofen 600 mg 01/07/24 09:27 Ibuprofen 600 Mg Tablet PO Q8H PRN Mild Pain Morphine Sulfate 1 mg 01/06/24 14:23 01/06/24 22:25 Morphine Sulfate 2 Mg/Ml Syringe IVP 1 mg Q6H PRN Administration MODERATE PAIN Ondansetron HCl 4 mg 01/06/24 13:19 Ondansetron Hcl/Pf 4 Mg/2 Ml Sdv IVP Q6H PRN Nausea / Vomiting Plan Plan: 1. DKA, moderate - Resolved, AG closed. Bicarb improved. Transitioned to her insulin pump. Pt usually well controlled, states glucose typically in 100s. Will monitor today. 2. Hypotension - Improved last reading, continue fluids. 3. Hypothyoridism - Cont home meds Dispo: Will monitor today and likely discharge tomorrow. Pt has had low BPs t [place] and her ride home is unable to wait until this afternoon. From a social standpoint patient will need to stay overnight to await arrival of her father. Review Statement Review Statement: I have personally discussed and reviewed the patient's visit/currently labs/imaging/decision making with Dr. Fernandes, my supervising attending. Greater that 50 minutes spent with patient, 50% of the time spent with this patient was devoted to counseling and coordination of care.
[2024-01-07] MEDS ORDERED: LACTATED RINGERS 1,000 ML IV SCH (10:00)
[2024-01-07] MEDS: MOTRIN PO PRN (10:23)
[2024-01-07] MEDS: DEXTROSE 5%-1/2NS IV SOLUTION 1,000 ML IV SCH (10:23)
[2024-01-08] MEDS: SYNTHROID PO SCH ×2 (05:12)
[2024-01-08 05:17] LABS: BASOPHILS % (AUTO) 0.5 % (0.0-3.0); EOSINOPHILS # (AUTO) 0.4 K/ul (0.0-0.7); EOSINOPHILS % (AUTO) 7.3 % (0.0-7.0); HEMATOCRIT 36.7 % (37.0-47.0); HEMOGLOBIN 11.8 g/dl (12.0-16.0); IMMATURE GRANULOCYTE % (AUTO) 0.2 % (0.0-5.0); LYMPHOCYTES # (AUTO) 2.1 K/uL (0.60-3.4); LYMPHOCYTES % (AUTO) 36.8 (10.0-50.0); MEAN CORPUSCULAR HEMOGLOBIN 30.8 pg (27.0-31.0); MEAN CORPUSCULAR HGB CONC 32.2 (31.8-35.4); MEAN CORPUSCULAR VOLUME 95.8 fl (81.0-99.0); MONOCYTES # (AUTO) 0.4 K/uL (0.4-2.0); MONOCYTES % (AUTO) 6.4 (0-10); NEUTROPHILS # (AUTO) 2.8 K/ul (2.0-6.9); NEUTROPHILS % (AUTO) 48.8 % (42.2-75.2); PLATELET COUNT 188 10^3/uL (140-440); RDW COEFFICIENT OF VARIATION 12.9 % (11.6-14.8); RED BLOOD COUNT 3.83 10^6/ul (4.20-5.40); WHITE BLOOD COUNT 5.79 K/ul (4.6-10.2)
[2024-01-08 05:33] LABS: ALBUMIN 3.11 g/dL (3.5-5.0); ALKALINE PHOSPHATASE 56.3 U/L (38-126); ASPARTATE AMINO TRANSFERASE 26.1 U/L (14-36); BLOOD UREA NITROGEN 4.8 mg/dL (7-17); CALCIUM 8.05 mg/dL (8.4-10.2); CARBON DIOXIDE 23.9 mmol/L (22-30.0); CHLORIDE 112.5 mmol/L (98-107); CREATININE 0.62 mg/dL (0.60-1.30); GLUCOSE 100.5 mg/dL (74-106); POTASSIUM 3.68 mmol/L (3.5-5.1); SODIUM 139.7 mmol/L (134.5-145); TOTAL PROTEIN 5.62 g/dL (6.3-8.2)
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
[2024-01-08 10:21] VITALS: BP 119/77; PULSE 56; RESP 14; TEMP 98
== END 2024-01-08 11:30 | disposition home or self-care (01) ==
LOC: ED 08:13 → SCU 08:13
PROVIDERS: ADMIT Hospitalist; ATTEND Nurse Practitioner Family
DX: I95.9 Hypotension, unspecified; E10.10 Type 1 diabetes mellitus with ketoacidosis without coma; M25.511 Pain in right shoulder; Z20.822 Contact with and (suspected) exposure to COVID-19; E03.9 Hypothyroidism, unspecified; R11.2 Nausea with vomiting, unspecified; Z79.4 Long term (current) use of insulin; M25.512 Pain in left shoulder; Z79.899 Other long term (current) drug therapy; R06.02 Shortness of breath; Z51.81 Encounter for therapeutic drug level monitoring